=== PATIENT | male | born 1990 | race Caucasian/White ===

== ENCOUNTER 2024-02-20 10:18 | Emergency (ER) | payer OTHER ==
[2024-02-20] MEDS: Tetracaine HCl/PF 0.5% 4 ML Bottle EYEBOTH ONE (12:07)
== END 2024-02-20 12:47 | disposition home or self-care (01) ==
LOC: MW.ED 10:18
DX: Z77.098 Contact with and (suspected) exposure to other hazardous, chiefly nonmedicinal, chemicals (principal); Z75.8 Other problems related to medical facilities and other health care
CPT/HCPCS: 99283; J3490